=== PATIENT | female | born 1970 | race American Indian/Alaskan Native ===

== ENCOUNTER 2017-12-25 14:09 | Inpatient (IN) | payer MEDICAID ==
--- NOTE | 2017-12-25 14:51 | C.PDOC ---
History Of Present Illness 47 y/o female, , presents to the ER after she had labwork which showed hemoglobin level of 6. Patient notes that she has long-standing history of hematuria as she typically has bloody urine. Patient reports that she was seen by Dr. Garcia 1 week ago and she had outpatient labwork which showed significant anemia. Patient has been sent to the ER by for an urgent cystoscopy and CAT Scan. Patient denies having abdominal pain, dysfunctional uterine bleeding, and dark stool. Time Seen by Provider: 12/25/17 14:34 Chief Complaint (Nursing): Abnormal Labs History Per: Patient History/Exam Limitations: no limitations Past Medical History Reviewed: Historical Data, Nursing Documentation, Vital Signs Vital Signs: Last Vital Signs Temp 98 F 12/25/17 22:00 Pulse 82 12/25/17 22:00 Resp 20 12/25/17 22:00 BP 149/83 12/25/17 22:00 Pulse Ox 100 12/25/17 22:00 - Medical History PMH: HTN Surgical History: Family History: States: No Known Family Hx - Social History Hx Alcohol Use: Yes Hx Substance Use: No - Immunization History Hx Tetanus Toxoid Vaccination: No Hx Influenza Vaccination: No Hx Pneumococcal Vaccination: No Review Of Systems Except As Marked, All Systems Reviewed And Found Negative. Constitutional: Negative for: Weight loss (significant weight loss) Gastrointestinal: Negative for: Melena Genitourinary: Negative for: Vaginal Bleeding Physical Exam - Physical Exam Appears: Non-toxic, No Acute Distress, Other (black female ) Skin: Pale Head: Atraumatic, Normacephalic Eye(s): bilateral: Normal Inspection, Conjunctiva Pale Nose: Normal Oral Mucosa: Moist Neck: Supple Chest: Symmetrical Respiratory: Normal Breath Sounds, No Accessory Muscle Use, No Rales, No Rhonchi , No Wheezing Extremity: Normal ROM Neurological/Psych: Oriented x3, Normal Speech, Normal Motor, Normal Sensation ED Course And Treatment - Laboratory Results Result Diagrams: 12/25/17 15:05 12/25/17 15:05 O2 Sat by Pulse Oximetry: 100 (RA) Pulse Ox Interpretation: Normal - CT Scan/US Abd/Pelv CT Other Rad Studies (CT/US): Read By Radiologist CT/US Interpretation: IMPRESSION: Examination limited by paucity of intra- abdominal/ intrapelvic fat. 12 mm probable hepatic cyst. Additional too small to characterize hepatic hypodensities. 13 mm probable right renal cyst. Additional too small to characterize bilateral renal hypodensities. Thick- walled under distended urinary bladder. Correlate clinically. Enlarged heterogeneous uterus. 3.2 cm left adnexal low-density lesion, likely related to the ovary. Recommend pelvic ultrasound further evaluation. Small pelvic free fluid. Bowel containing umbilical hernia without evidence of obstruction. Additional findings as above. Progress Note: Labs ,UA, and CT Scan-Abd/Pelv. ordered. Disposition Doctor Will See Patient In The: Hospital Counseled Patient/Family Regarding: Studies Performed, Diagnosis - Disposition Disposition: HOSPITALIZED Disposition Time: 18:00 Condition: GOOD - Clinical Impression Clinical Impression: Symptomatic anemia - Scribe Statement The provider has reviewed the documentation as recorded by the Scribe Deepti Patterson Provider Attestation: All medical record entries made by the Scribe were at my direction and personally dictated by me. I have reviewed the chart and agree that the record accurately reflects my personal performance of the history, physical exam, medical decision making, and the department course for this patient. I have also personally directed, reviewed, and agree with the discharge instructions and disposition.
[2017-12-25 15:12] LABS: BASO # 0.1 K/uL (0.0-0.2); LYMPH # 2.4 K/uL (1.0-4.3); MEAN CELL VOLUME 81.9 fL (81.0-99.0); MONO # 0.4 K/uL (0.0-0.8); NRBC % 0.1 % (0.0-2.0)
[2017-12-25 15:16] LABS: EOS % 0.3 % (0.0-4.0); LYMPH % 38.6 % (20.0-40.0); MEAN CORPUSCULAR HEMOGLOBIN 26.9 pg (27.0-31.0); MEAN CORPUSCULAR HGB CONC 32.8 g/dL (33.0-37.0); MEAN PLATELET VOLUME 8.6 fL (7.2-11.7); MONO % 6.4 % (0.0-10.0); NEUT # 3.3 K/uL (1.8-7.0); NEUT % 53.7 % (50.0-75.0); RBC 2.4 Mil/uL (3.80-5.20); RED CELL DISTRIBUTION WIDTH 17.2 % (11.5-14.5); WHITE BLOOD COUNT 6.2 K/uL (4.8-10.8)
[2017-12-25 15:23] LABS: HEMOGLOBIN 6.4 g/dL (11.0-16.0); SQUAMOUS EPITHIAL 1 /hpf (0-5); URINE BILIRUBIN NEGATIVE (NEGATIVE); URINE BLOOD NEGATIVE (NEGATIVE); URINE CLARITY Clear (Clear); URINE COLOR Straw (YELLOW); URINE GLUCOSE (UA) NORMAL (Normal); URINE LEUKOCYTE ESTERASE NEG Leu/uL (Negative); URINE NITRATE NEGATIVE (NEGATIVE); URINE PROTEIN NEGATIVE (NEGATIVE); URINE UROBILINOGEN NORMAL mg/dL (0.2-1.0)
[2017-12-25 15:25] LABS: HCG,QUALITATIVE URINE NEGATIVE (NEGATIVE)
[2017-12-25 15:36] LABS: ALB/GLOB RATIO 1.1 (1.0-2.1); ALBUMIN 3.7 g/dL (3.5-5.0); ALT/SGPT 31 U/L (9-52); AST/SGOT 25 U/L (14-36); BLOOD UREA NITROGEN 6 mg/dL (7-17); CALCIUM 9.3 mg/dl (8.6-10.4); GFR AFRICAN-AMERICAN > 60; GFR NON-AFRICAN AMERICAN > 60
[2017-12-25] MEDS ORDERED: Iodixanol 320 mg/ml 150 ml Bottle IV ONE (16:13)
--- NOTE | 2017-12-25 17:38 | CT ---
PROCEDURE: CT Abdomen and Pelvis with and without intravenous contrast HISTORY: hematuria, focus system- hematuria COMPARISON: None available. TECHNIQUE: Axial images of the abdomen were obtained in the pre contrast, portal venous and delayed phases of enhancement. Coronal and sagittal reformats were generated and reviewed. Contrast dose: 100 mL Visipaque IV Radiation dose: Total exam DLP = 1591.67 mGy-cm. This CT exam was performed using one or more of the following dose reduction techniques: Automated exposure control, adjustment of the mA and/or kV according to patient size, and/or use of iterative reconstruction technique. FINDINGS: LOWER THORAX: No visible consolidation, pleural effusion, or pneumothorax. LIVER: 12 mm probable hepatic cyst. Additional too small to characterize hepatic hypodensities. GALLBLADDER AND BILE DUCTS: Decompressed gallbladder precludes adequate evaluation. PANCREAS: Unremarkable. SPLEEN: Unremarkable. ADRENALS: Unremarkable. KIDNEYS AND URETERS: The kidneys enhance symmetrically. No hydronephrosis or obstructing calculus identified. 13 mm probable right renal cyst. Additional too small to characterize bilateral renal hypodense. VASCULATURE: No aortic aneurysm. BOWEL: Stomach is nondistended. Lack of oral contrast limits evaluation for bowel pathology. Bowel loops appear within normal limits of caliber without evidence of obstruction. APPENDIX: The presumed appendix appears within normal limits of caliber. PERITONEUM: Small pelvic free fluid. No definite free air. LYMPH NODES: No bulky adenopathy identified. BLADDER: Under distended mildly thick-walled urinary bladder. REPRODUCTIVE: Enlarged heterogeneous uterus. 3.2 cm left adnexal low density lesion. BONES: No acute osseous abnormality is detected. OTHER FINDINGS: Bowel containing umbilical hernia without evidence of obstruction. IMPRESSION: Examination limited by paucity of intra-abdominal/ intrapelvic fat. 12 mm probable hepatic cyst. Additional too small to characterize hepatic hypodensities. 13 mm probable right renal cyst. Additional too small to characterize bilateral renal hypodensities. Thick-walled under distended urinary bladder. Correlate clinically. Enlarged heterogeneous uterus. 3.2 cm left adnexal low-density lesion, likely related to the ovary. Recommend pelvic ultrasound further evaluation. Small pelvic free fluid. Bowel containing umbilical hernia without evidence of obstruction. Additional findings as above.
--- NOTE | 2017-12-25 19:41 | CP.PCM.HP ---
Present on Admission - Present on Admission Any Indicators Present on Admission: No Past Patient History - Past Social History Smoking Status: Never Smoked - CARDIAC Hx Hypertension: Yes - PSYCHIATRIC Hx Substance Use: No - SURGICAL HISTORY Hx Section: Yes - ANESTHESIA Hx Anesthesia: Yes Hx Anesthesia Reactions: No Meds Allergies/Adverse Reactions: Allergies Allergy/AdvReac Type Severity Reaction Status Date / Time No Known Allergies Allergy Verified 12/25/17 14:18 Results - Vital Signs Recent Vital Signs: Last Vital Signs Temp 97.8 F 12/25/17 19:08 Pulse 95 H 12/25/17 19:08 Resp 20 12/25/17 19:08 BP 142/81 12/25/17 19:08 Pulse Ox 100 12/25/17 19:08 - Labs Result Diagrams: 12/25/17 15:05 12/25/17 15:05 Labs: Laboratory Results - last 24 hr 12/25/17 12/25/17 12/25/17 15:05 15:05 15:05 WBC 6.2 RBC 2.40 L Hgb 6.4 L* Hct 19.6 L MCV 81.9 MCH 26.9 L MCHC 32.8 L RDW 17.2 H Plt Count 324 MPV 8.6 Neut % (Auto) 53.7 Lymph % (Auto) 38.6 [place] % (Auto) 6.4 Eos % (Auto) 0.3 Baso % (Auto) 1.0 Neut # (Auto) 3.3 Lymph # (Auto) 2.4 [place] # (Auto) 0.4 Eos # (Auto) 0.0 Baso # (Auto) 0.1 Sodium 140 Potassium 3.2 L Chloride 102 Carbon Dioxide 24 Anion Gap 17 BUN 6 L Creatinine 0.8 Est GFR ( Amer) > 60 Est GFR (Non-Af Amer) > 60 Random Glucose 93 Calcium 9.3 Total Bilirubin 0.4 AST 25 ALT 31 Alkaline Phosphatase 48 Troponin I < 0.0120 Total Protein 7.1 Albumin 3.7 Globulin 3.4 Albumin/Globulin Ratio 1.1 Urine Color Straw Urine Clarity Clear Urine pH 6.0 Ur Specific [place] 1.008 Urine Protein Negative Urine Glucose (UA) Normal Urine Ketones Negative Urine Blood Negative Urine Nitrate Negative Urine Bilirubin Negative Urine Urobilinogen Normal Ur Leukocyte Esterase Neg Urine WBC (Auto) < 1 Ur Squamous Epith Cells 1 Urine HCG, Qual Negative Blood Type Blood Type Confirm Antibody Screen 12/25/17 17:23 WBC RBC Hgb Hct MCV MCH MCHC RDW Plt Count MPV Neut % (Auto) Lymph % (Auto) [place] % (Auto) Eos % (Auto) Baso % (Auto) Neut # (Auto) Lymph # (Auto) [place] # (Auto) Eos # (Auto) Baso # (Auto) Sodium Potassium Chloride Carbon Dioxide Anion Gap BUN Creatinine Est GFR ( Amer) Est GFR (Non-Af Amer) Random Glucose Calcium Total Bilirubin AST ALT Alkaline Phosphatase Troponin I Total Protein Albumin Globulin Albumin/Globulin Ratio Urine Color Urine Clarity Urine pH Ur Specific [place] Urine Protein Urine Glucose (UA) Urine Ketones Urine Blood Urine Nitrate Urine Bilirubin Urine Urobilinogen Ur Leukocyte Esterase Urine WBC (Auto) Ur Squamous Epith Cells Urine HCG, Qual Blood Type A POSITIVE Blood Type Confirm A POSITIVE Antibody Screen Negative
[2017-12-25] MEDS ORDERED: Ciprofloxacin 400mg/200ml D5W 400 MG/200 ML BAG IVPB ONE (23:38)
[2017-12-25] MEDS ORDERED: Potassium Chloride 20 mEq ER Tab PO ONE (23:39)
[2017-12-26] MEDS: Ciprofloxacin 400mg/200ml D5W 400 MG/200 ML BAG IVPB SCH ×3 (01:08→22:29)
[2017-12-26] MEDS: Potassium Chloride 20 mEq ER Tab PO SCH ×2 (04:30)
[2017-12-26 06:23] LABS: RBC 3.04 Mil/uL (3.80-5.20); RED CELL DISTRIBUTION WIDTH 16.4 % (11.5-14.5)
[2017-12-26 07:18] LABS: MEAN CELL VOLUME 82.6 fL (81.0-99.0); MEAN CORPUSCULAR HEMOGLOBIN 27.6 pg (27.0-31.0); MEAN CORPUSCULAR HGB CONC 33.4 g/dL (33.0-37.0); MEAN PLATELET VOLUME 8.9 fL (7.2-11.7); PLATELET COUNT 278 K/uL (130-400)
[2017-12-26 07:21] LABS: HEMOGLOBIN 8.4 g/dL (11.0-16.0)
[2017-12-26 07:35] LABS: FOLATE > 20.0 ng/mL
[2017-12-26 09:18] LABS: LYMPH # 0.6 K/uL (1.0-4.3); MONO # 0.2 K/uL (0.0-0.8); NEUT # 7.1 K/uL (1.8-7.0)
[2017-12-26 09:19] LABS: LYMPHOCYTE 8 % (20-40); MONOCYTE 4 % (0-10); NEUTROPHIL 88 % (50-75); PLATELET ESTIMATE NORMAL (NORMAL); TOTAL CELLS COUNTED 100
[2017-12-26 09:20] LABS: ANISOCYTOSIS SLIGHT; HYPOCHROMIC SLIGHT; POLYCHROMIC SLIGHT; TARGET CELLS SLIGHT
[2017-12-26] MEDS: Pantoprazole 40 mg EC Tab PO SCH (10:47)
[2017-12-26 16:59] VITALS: RESP 20
--- NOTE | 2017-12-26 19:23 | CP.PCM.PN ---
Subjective - Date & Time of Evaluation Date of Evaluation: 12/26/17 Objective - Vital Signs/Intake and Output Vital Signs (last 24 hours): Temp Pulse Resp BP Pulse Ox 97.7 F 83 20 124/67 100 12/26/17 16:00 12/26/17 16:00 12/26/17 16:00 12/26/17 16:00 12/26/17 16:00 Intake and Output: 12/26/17 12/27/17 18:59 06:59 Intake Total 200 Balance 200 - Medications Medications: Current Medications Hydrochlorothiazide (Hydrodiuril) 25 mg PO DAILY [facility] Last Admin: 12/26/17 10:47 Dose: 25 mg Ciprofloxacin (Cipro 400mg/200ml Dsw) 400 mg in 200 mls @ 133 mls/hr IVPB Q12H [facility] PRN Reason: Protocol Stop: 12/30/17 12:31 Last Admin: 12/26/17 10:47 Dose: 133 mls/hr Losartan Potassium (Cozaar) 100 mg PO DAILY [facility] Last Admin: 12/26/17 10:47 Dose: 100 mg Pantoprazole Sodium (Protonix Ec Tab) 40 mg PO DAILY [facility] Last Admin: 12/26/17 10:47 Dose: 40 mg Pneumococcal Polyvalent Vaccine (Pneumovax 23 Vaccine) 0.5 ml IM .ONCE ONE Stop: 12/27/17 10:01 - Labs Labs: 12/26/17 06:10 12/25/17 15:05 Assessment and Plan - Assessment and Plan (Free Text) Plan: Status post units of PRBCs Posttransfusion hemoglobin is 8.4 25.1 Status post calcium supplementation Follow-up with Dr. Araiza Follow-up with the culture Status post abdominal CT Microbiology still pending
--- NOTE | 2017-12-26 20:10 | CP.PCM.CON ---
History of Present Illness - History of Present Illness History of Present Illness: 47 year old female with a history of HTN, chronic painless hematuria, admitted with anemia. The patient was seen by her outpatient urologist who did blood work. This revealed a low hgb and she was told to report to the ER. In the ER she was found to have a hgb of 6.4 and transfused 2U PRBC. She denies chest pain but notes to dyspnea with exertion. She reports to painless hematuria for about 2 months time. Past medical history: HTN, hematuria Past surgical history: Family history: Father had throat cancer Social history: Denies tobacco, alcohol, and illicit drug use. Allergies: NKA Review of systems: All remaining review of systems including HEENT, cardiovascular, respiratory, gastrointestinal, genitourinary, musculoskeletal, dermatologic, neurologic, and psychiatric are negative unless mentioned in the HPI. Past Patient History - Past Medical History & Family History Past Medical History?: Yes - Past Social History Smoking Status: Never Smoked - CARDIAC Hx Cardiac Disorders: Yes Hx Hypertension: Yes - PULMONARY Hx Respiratory Disorders: No - NEUROLOGICAL Hx Neurological Disorder: No - HEENT Hx HEENT Problems: No - RENAL Hx Chronic Kidney Disease: No - ENDOCRINE/METABOLIC Hx Endocrine Disorders: No - HEMATOLOGICAL/ONCOLOGICAL Hx Blood Disorders: No - INTEGUMENTARY Hx Dermatological Problems: No - MUSCULOSKELETAL/RHEUMATOLOGICAL Hx Musculoskeletal Disorders: No Hx Falls: No - GASTROINTESTINAL Hx Gastrointestinal Disorders: No - GENITOURINARY/GYNECOLOGICAL Hx Genitourinary Disorders: No - PSYCHIATRIC Hx Psychophysiologic Disorder: No Hx Substance Use: No - SURGICAL HISTORY Hx Surgeries: Yes Hx Section: Yes - ANESTHESIA Hx Anesthesia: Yes Hx Anesthesia Reactions: No Hx Malignant Hyperthermia: No Has any member of the family had a problem w/ anesthesia?: No Meds Allergies/Adverse Reactions: Allergies Allergy/AdvReac Type Severity Reaction Status Date / Time No Known Allergies Allergy Verified 12/25/17 14:18 - Medications Medications: Current Medications Hydrochlorothiazide (Hydrodiuril) 25 mg PO DAILY [facility] Last Admin: 12/26/17 10:47 Dose: 25 mg Ciprofloxacin (Cipro 400mg/200ml Dsw) 400 mg in 200 mls @ 133 mls/hr IVPB Q12H [facility] PRN Reason: Protocol Stop: 12/30/17 12:31 Last Admin: 12/26/17 10:47 Dose: 133 mls/hr Losartan Potassium (Cozaar) 100 mg PO DAILY [facility] Last Admin: 12/26/17 10:47 Dose: 100 mg Pantoprazole Sodium (Protonix Ec Tab) 40 mg PO DAILY [facility] Last Admin: 12/26/17 10:47 Dose: 40 mg Pneumococcal Polyvalent Vaccine (Pneumovax 23 Vaccine) 0.5 ml IM .ONCE ONE Stop: 12/27/17 10:01 Physical Exam - Head Exam Head Exam: ATRAUMATIC - Eye Exam Eye Exam: Normal appearance - ENT Exam ENT Exam: Mucous Membranes Dry - Respiratory Exam Respiratory Exam: NORMAL BREATHING PATTERN - Cardiovascular Exam Cardiovascular Exam: +S1, +S2 - GI/Abdominal Exam GI & Abdominal Exam: Normal Bowel Sounds - Extremities Exam Extremities exam: Positive for: normal inspection - Neurological Exam Neurological exam: Oriented x3 - Psychiatric Exam Psychiatric exam: Normal Affect, Normal Mood - Skin Skin Exam: Warm Results - Vital Signs Recent Vital Signs: Last Vital Signs Temp 97.7 F 12/26/17 16:00 Pulse 83 12/26/17 16:00 Resp 20 12/26/17 16:00 BP 124/67 12/26/17 16:00 Pulse Ox 100 12/26/17 16:00 - Labs Result Diagrams: 12/26/17 06:10 12/25/17 15:05 Labs: Laboratory Results - last 24 hr 12/25/17 12/26/17 12/26/17 17:23 06:10 06:10 WBC 8.0 RBC 3.04 L Hgb 8.4 L D Hct 25.1 L MCV 82.6 MCH 27.6 MCHC 33.4 RDW 16.4 H Plt Count 278 MPV 8.9 Neut % (Auto) 89.0 H Lymph % (Auto) 8.0 L [place] % (Auto) 3.0 Eos % (Auto) 0.0 Baso % (Auto) 0.0 Neut # (Auto) 7.1 H Lymph # (Auto) 0.6 L [place] # (Auto) 0.2 Eos # (Auto) 0.0 Baso # (Auto) 0.0 Neutrophils % (Manual) 88 H Lymphocytes % (Manual) 8 L Monocytes % (Manual) 4 Platelet Estimate Normal Polychromasia Slight Hypochromasia (manual) Slight Anisocytosis (manual) Slight Target Cells Slight Vitamin B12 725 Folate > 20.0 Blood Type A POSITIVE Blood Type Confirm A POSITIVE Antibody Screen Negative Assessment & Plan (1) Iron deficiency anemia Assessment and Plan: likely secondary to chronic hematuria urology evaluation s/p 2U PRBC will start IV iron Thank you for this interesting consult. Status: Acute
--- NOTE | 2017-12-26 21:24 | CARD ---
APPROVED REPORT EKG Measurement Heart [id number] <Conclusion> Normal sinus rhythm Normal ECG
[2017-12-26 21:41] LABS: FERRITIN 6.7 ng/mL
[2017-12-26] MEDS ORDERED: Ferric Sodium Gluconat Complex 62.5 mg/5 ml Vial IVPB SCH (23:00)
[2017-12-26] MEDS ORDERED: Ferric Sodium Gluconat Complex 125 MG in Sodium Chloride 0.9% 100 ML IVPB SCH (23:00)
[2017-12-27 00:36] VITALS: O2SAT 99
[2017-12-27 06:29] LABS: HEMOGLOBIN 8.6 g/dL (11.0-16.0); MEAN CELL VOLUME 82.1 fL (81.0-99.0); MEAN CORPUSCULAR HEMOGLOBIN 27.3 pg (27.0-31.0); MEAN CORPUSCULAR HGB CONC 33.2 g/dL (33.0-37.0); MEAN PLATELET VOLUME 8.6 fL (7.2-11.7); RBC 3.14 Mil/uL (3.80-5.20)
[2017-12-27 06:52] LABS: BLOOD UREA NITROGEN 4 mg/dL (7-17); CALCIUM 8.4 mg/dl (8.6-10.4); GFR AFRICAN-AMERICAN > 60; GFR NON-AFRICAN AMERICAN > 60
[2017-12-27 08:23] VITALS: BP 133/83; PULSE 74; TEMP 98
[2017-12-27 09:31] LABS: EOS # 0.2 K/uL (0.0-0.7); LYMPH # 1.5 K/uL (1.0-4.3); MONO # 0.6 K/uL (0.0-0.8); NEUT # 7.7 K/uL (1.8-7.0)
[2017-12-27] MEDS: Pantoprazole 40 mg EC Tab PO SCH (09:52)
[2017-12-27] MEDS ORDERED: Potassium Chloride 20 mEq ER Tab PO SCH (10:00)
[2017-12-27] MEDS ORDERED: Influenza Vaccine 60 mcg/0.5 mL SYR (4YR UP) IM ONE (10:00)
[2017-12-27] MEDS ORDERED: Pneumococcal 23-Valent Vaccine IM ONE (10:00)
[2017-12-27] MEDS: Ciprofloxacin 400mg/200ml D5W 400 MG/200 ML BAG IVPB SCH (10:33)
--- NOTE | 2017-12-27 10:41 | CP.PCM.PN ---
Subjective - Date & Time of Evaluation Date of Evaluation: 12/27/17 Objective - Vital Signs/Intake and Output Vital Signs (last 24 hours): Temp Pulse Resp BP Pulse Ox 98 F 74 20 133/83 99 12/27/17 08:00 12/27/17 08:00 12/27/17 08:00 12/27/17 08:00 12/27/17 08:00 Intake and Output: 12/27/17 12/27/17 06:59 18:59 Intake Total 500 Output Total 500 Balance 0 - Medications Medications: Current Medications Hydrochlorothiazide (Hydrodiuril) 25 mg PO DAILY [facility] Last Admin: 12/27/17 09:52 Dose: 25 mg Ciprofloxacin (Cipro 400mg/200ml Dsw) 400 mg in 200 mls @ 133 mls/hr IVPB Q12H [facility] PRN Reason: Protocol Stop: 12/30/17 12:31 Last Admin: 12/27/17 10:33 Dose: 133 mls/hr Ferric Sodium Gluconate Complex 125 mg/ Sodium Chloride 110 mls @ 100 mls/hr IVPB Q24H [facility] Stop: 01/03/18 23:01 Last Admin: 12/26/17 23:07 Dose: 100 mls/hr Lactulose (Enulose) 20 gm PO BID [facility] Last Admin: 12/27/17 09:53 Dose: Not Given Losartan Potassium (Cozaar) 100 mg PO DAILY [facility] Last Admin: 12/27/17 09:52 Dose: 100 mg Pantoprazole Sodium (Protonix Ec Tab) 40 mg PO DAILY [facility] Last Admin: 12/27/17 09:52 Dose: 40 mg Potassium Chloride (K-Dur 20 Meq Er Tab) 40 meq PO DAILY [facility] Stop: 12/29/17 10:01 Last Admin: 12/27/17 09:53 Dose: 40 meq - Labs Labs: 12/27/17 06:20 12/27/17 06:20 Assessment and Plan - Assessment and Plan (Free Text) Plan: Hemoglobin is 8.6 now potassium is 3.2 with supplemental potassium. Continue with Cipro Continue losartan Follow-up with the consultants Urine culture
--- NOTE | 2017-12-27 11:19 | PCM.URO ---
Urology Progress Note - Objective Lab Studies: Reviewed (gu plans : pt will need cystoscopy will discuss timing and location thanks) Lab Results Last 24 Hours: Laboratory Results - last 24 hr 12/26/17 12/27/17 12/27/17 06:10 06:20 06:20 WBC 10.0 RBC 3.14 L Hgb 8.6 L Hct 25.8 L MCV 82.1 MCH 27.3 MCHC 33.2 RDW 17.0 H Plt Count 304 MPV 8.6 Neut % (Auto) 77.0 H Lymph % (Auto) 15.0 L [place] % (Auto) 6.0 Eos % (Auto) 2.0 Baso % (Auto) 0.0 Neut # (Auto) 7.7 H Lymph # (Auto) 1.5 [place] # (Auto) 0.6 Eos # (Auto) 0.2 Baso # (Auto) 0.0 Sodium 139 Potassium 3.2 L Chloride 103 Carbon Dioxide 23 Anion Gap 16 BUN 4 L Creatinine 0.7 Est GFR ( Amer) > 60 Est GFR (Non-Af Amer) > 60 Random Glucose 81 Calcium 8.4 L Ferritin 6.7 Vitamin B12 725 Folate > 20.0 Intake & Output: Intake & Output 12/26/17 12/27/17 12/27/17 18:59 06:59 18:59 Intake Total 200 500 Output Total 500 Balance 200 0 Intake: Intake, IV Amount 200 200 Left Antecubital 200 200 Oral 300 Output: Urine 500 Urine, Voided 500 Other: # Voids Urine, Voided 2 3 # Bowel Movements 1 Vital Signs: Vital Signs - 24 hr 12/26/17 12/27/17 12/27/17 16:00 00:00 08:00 Temperature 97.7 F 98.5 F 98 F Pulse Rate 83 83 74 Respiratory 20 20 20 Rate Blood Pressure 124/67 137/81 133/83 O2 Sat by Pulse 100 99 99 Oximetry
--- NOTE | 2017-12-27 12:35 | CP.PCM.PN ---
Subjective - Date & Time of Evaluation Date of Evaluation: 12/27/17 Time of Evaluation: 12:00 - Subjective Subjective: Patient seen today denies any abdominal pain, N/V, no further hematuria reported seen by Dr. Araiaz and cleared for discharge and cystoscopy out patient s/p PRBC transfusion hgb - stable - 8.6>8.4>6.4 Objective - Vital Signs/Intake and Output Vital Signs (last 24 hours): Temp Pulse Resp BP Pulse Ox 98 F 74 20 133/83 99 12/27/17 08:00 12/27/17 08:00 12/27/17 08:00 12/27/17 08:00 12/27/17 08:00 Intake and Output: 12/27/17 12/27/17 06:59 18:59 Intake Total 500 Output Total 500 Balance 0 - Medications Medications: Current Medications Hydrochlorothiazide (Hydrodiuril) 25 mg PO DAILY [facility] Last Admin: 12/27/17 09:52 Dose: 25 mg Ciprofloxacin (Cipro 400mg/200ml Dsw) 400 mg in 200 mls @ 133 mls/hr IVPB Q12H [facility] PRN Reason: Protocol Stop: 12/30/17 12:31 Last Admin: 12/27/17 10:33 Dose: 133 mls/hr Ferric Sodium Gluconate Complex 125 mg/ Sodium Chloride 110 mls @ 100 mls/hr IVPB Q24H [facility] Stop: 01/03/18 23:01 Last Admin: 12/26/17 23:07 Dose: 100 mls/hr Lactulose (Enulose) 20 gm PO BID [facility] Last Admin: 12/27/17 09:53 Dose: Not Given Losartan Potassium (Cozaar) 100 mg PO DAILY [facility] Last Admin: 12/27/17 09:52 Dose: 100 mg Pantoprazole Sodium (Protonix Ec Tab) 40 mg PO DAILY [facility] Last Admin: 12/27/17 09:52 Dose: 40 mg Potassium Chloride (K-Dur 20 Meq Er Tab) 40 meq PO DAILY [facility] Stop: 12/29/17 10:01 Last Admin: 12/27/17 09:53 Dose: 40 meq - Labs Labs: 12/27/17 06:20 12/27/17 06:20 Assessment and Plan - Assessment and Plan (Free Text) Assessment: 47 yr old female admitted with hematuria an d symptomatic anemia s/p blood transfusion hgb - improved and stable seen by Dr. araiza , cleared for discharge home and f/u outpat for cystoscopy Patient has recent US of plevis, bladder , uterus done done at [facility] D/W Dr. Pérez morrison , cleared for discharge home today and f/u with Dr. Araiza office for cystoscopy Discharge plan discussed with patient who understand and agrees with plan Patient instructed to returns to ED if hematuria recur , or any other concerning symptoms
--- NOTE | 2017-12-27 14:27 | CP.PCM.PN ---
Subjective - Date & Time of Evaluation Date of Evaluation: 12/27/17 Time of Evaluation: 11:05 - Subjective Subjective: No complaints, s/p PRBC transfusion and IV iron Objective - Vital Signs/Intake and Output Vital Signs (last 24 hours): Temp Pulse Resp BP Pulse Ox 98 F 74 20 133/83 99 12/27/17 08:00 12/27/17 08:00 12/27/17 08:00 12/27/17 08:00 12/27/17 08:00 Intake and Output: 12/27/17 12/27/17 06:59 18:59 Intake Total 500 Output Total 500 Balance 0 - Labs Labs: 12/27/17 06:20 12/27/17 06:20 - Head Exam Head Exam: ATRAUMATIC - Eye Exam Eye Exam: Normal appearance - ENT Exam ENT Exam: Mucous Membranes Dry - Respiratory Exam Respiratory Exam: NORMAL BREATHING PATTERN - Cardiovascular Exam Cardiovascular Exam: +S1, +S2 - GI/Abdominal Exam GI & Abdominal Exam: Normal Bowel Sounds Assessment and Plan (1) Iron deficiency anemia Assessment & Plan: secondary to chronic blood loss outpatient f/u s/p PRBC transfusion and IV iron outpatient f/u to continue iron Status: Acute
== END 2017-12-27 13:53 | disposition home or self-care (01) | DRG 395 ==
LOC: C.ER 14:09 → C.9E 17:08 → C.3T 23:33
PROVIDERS: ADMIT Internal Medicine Nephrology; ATTEND Internal Medicine Nephrology
DX: D50.9 Iron deficiency anemia, unspecified (principal); I10 Essential (primary) hypertension